=== PATIENT | male | born 1980 | race Caucasian/White ===

== ENCOUNTER 2018-02-26 06:17 | Day surgery (SDC) | payer BC ==
--- NOTE | 2018-02-19 09:16 | HP ---
DATE OF ADMISSION: 02/26/2018 DATE OF DICTATION: 12/31/2017 DATE OF SURGERY: 02/26/2018 REASON FOR ADMISSION: Scalp mass. BRIEF HISTORY: This is a 37-year-old gentleman who walks in with history of soft tissue mass on the back of his scalp. The patient states the mass has gotten larger, he wished to have this removed. PAST MEDICAL HISTORY: Denies coronary disease, hypertension, diabetes. He has a history of skin issues. PAST SURGICAL HISTORY: None. ALLERGIES: None. MEDICATION: None. SOCIAL HISTORY: Patient does not smoke and he drinks socially. PHYSICAL EXAMINATION: Physical examination of the scalp: Patient has a soft tissue mass the size of a half dollar on the back of his scalp. It is noted to be in midline, just overlying the . The mass is fairly well demarcated. The mass is soft. Patient also asked me to evaluate a soft tissue mass on his left small of his back. Examination in this area reveals a soft tissue mass approximately the size of a quarter. It is well demarcated, soft, and nontender. IMPRESSION/PLAN: Scalp mass, most likely represents a cyst. However, a lipoma cannot be entirely excluded. This is causing the patient discomfort, and he wishes to have this removed, therefore he will be scheduled for excision of this lesion. With regard to this soft tissue mass in the small of his left back, this most likely represents lipoma, and we will plan for excision in the operating room at a separate setting. The complications reviewed with this gentleman. He understands and wants to proceed. TACHO GALINDO M.D. [id number]
[2018-02-25 09:38] VITALS: BMI 33.3
[2018-02-26] MEDS ORDERED: ceFAZolin SODIUM 1 GM VIAL ONE ×2 (07:01→09:07)
[2018-02-26] MEDS ORDERED: ROCURONIUM BROMIDE 50 MG/5 ML VIAL ONE ×4 (08:36)
[2018-02-26] MEDS ORDERED: PROPOFOL 20 ML ONE (08:36)
[2018-02-26] MEDS ORDERED: MIDAZOLAM HCL 2 MG/2 ML SINGLE DOSE VIAL ONE (08:37)
[2018-02-26] MEDS ORDERED: LIDOCAINE HCL/PF 2% SDV 5ML VIAL ONE (08:40)
[2018-02-26] MEDS ORDERED: BACITRACIN 15 GM TUBE TOPICAL OINTMENT ONE (08:42)
[2018-02-26] MEDS ORDERED: LIDOCAINE HCL 1%, 10 MG/ML (20ML VIAL) ONE (08:42)
[2018-02-26] MEDS ORDERED: BUPIVACAINE HCL/PF 0.5% (5MG/ML) 10 ML VIAL ONE (08:42)
[2018-02-26] MEDS ORDERED: LIDOCAINE 1%/EPI 1:100000 (20 ML MULTI DOSE VIAL) ONE (08:42)
[2018-02-26] MEDS ORDERED: LACTATED RINGERS SOLUTION 1,000 ML IV SCH (08:45)
[2018-02-26] MEDS ORDERED: oxyCODONE HCL 5 MG TABLET PO PRN (08:45)
[2018-02-26] MEDS ORDERED: ONDANSETRON 4 MG/2 ML VIAL IVPUSH PRN (08:45)
[2018-02-26] MEDS ORDERED: PROMETHAZINE HCL 25 MG/1 ML VIAL IVPUSH PRN (08:45)
[2018-02-26] MEDS ORDERED: ceFAZolin SODIUM 1 GM VIAL IVPB ONE (09:00)
[2018-02-26] MEDS ORDERED: SODIUM CHLORIDE 0.9% P/F 10 ML VIAL IJ ONE (09:07)
[2018-02-26] MEDS ORDERED: LIDOCAINE 1%/EPI 1:100000 (50 ML MULTI DOSE VIAL) INF ONE (09:20)
[2018-02-26] MEDS ORDERED: KETOROLAC TROMETHAMINE 30 MG/1 ML VIAL ONE (09:23)
--- NOTE | 2018-02-26 09:56 | HP ---
DATE OF ADMISSION: 02/26/2018 HISTORY: This is a 37-year-old man who presents for excision of progressively enlarging soft tissue mass involving the posterior aspect of his scalp. The mass has been present for some time. No related symptoms. PAST MEDICAL HISTORY: No significant past medical history. No history of heart disease, diabetes, hypertension, respiratory or hepatic insufficiency. PAST SURGICAL HISTORY: Nil. ALLERGIES: None known. REGULAR MEDICATIONS: None. SOCIAL HISTORY: Negative for tobacco. Negative alcohol. PHYSICAL EXAMINATION: HEENT: Patient with a 4 x 5 cm soft tissue mass of the posterior scalp just off to the left of midline. It does not appear to be fixed up. There is no regional lymphadenopathy. IMPRESSION: Posterior scalp mass. PLAN: Excision posterior scalp mass. Indications, alternatives, possible complications were reviewed. Consent obtained. AUGUSTIN WATSON M.D. [id number]
[2018-02-26 10:31] VITALS: TEMP 98
--- NOTE | 2018-02-26 11:49 | OP ---
DATE OF OPERATION: 02/26/2018 PREOPERATIVE DIAGNOSIS: Posterior scalp mass. POSTOPERATIVE DIAGNOSIS: Subgaleal lipomatous neoplasia, posterior scalp. PROCEDURE: Excision subgaleal fascial lipomatous neoplasia, posterior scalp/intermediate wound closure (5 cm). OPERATING SURGEON: Abhilash Haas MD INVESTMENT ADVISOR: None. ANESTHESIA: Local/MAC, Nabeel Carnes MD HISTORY: This is a 37-year-old man who presents with a progressively enlarging soft tissue mass at the posterior scalp for formal excision. Indications, alternatives, possible complications reviewed. Consent obtained. PROCEDURE: With the patient in the right lateral decubitus position, the head turned to the right side, the posterior scalp was prepped and draped in sterile fashion using Betadine. After 1% lidocaine with epinephrine was used to place a field block at the intended level of excision, a 5-cm transverse incision was made directly over the palpable abnormality and deepened into the subcutaneous space. The subcutaneous tissues were . Deep to the [place] subcutaneous tissues, a rather well-encapsulated lipomatous neoplasia was encountered. Sharp dissection ensued, excising the lipomatous neoplasia. In the depths of the wound it had penetrated the galea and was stemming from the subgaleal region. The galea was further incised and the lesion was delivered in its entirety. After adequate hemostasis, the wound was closed in layers. The galea was approximated using interrupted 3-0 Vicryl sutures. Subcutaneous tissues were approximated using interrupted 3-0 Vicryl sutures. Skin edges were approximated using a continuous 5-0 nylon suture. [place], instrument count correct. ESTIMATED BLOOD LOSS: Minimal. SPECIMENS: Subgaleal lipomatous neoplasia, posterior scalp. DRAINS: None. The patient tolerated the procedure and the patient was transferred to recovery. ABHILASH HAAS M.D. [id number]
[2018-02-26 11:59] VITALS: BP 124/55; PULSE 63
--- NOTE | 2018-02-27 16:45 | PATH ---
Surgical Pathology Report Patient Name: NILDA RIZZO [facility]. Rec. #: [id number] /Age/Gender: 1980 (Age: 37) / M Account: [id number] Location: [facility] SURGICAL Taken: 02/26/2018 Received: 02/26/2018 Reported: 02/27/2018 Physicians: Abhilash Haas M.D. Specimen(s) Received SCALP Clinical History Scalp mass Final Diagnosis SCALP, MASS, EXCISION: BENIGN FIBROADIPOSE TISSUE CONSISTENT WITH LIPOMA. Electronically Signed Kiera Neal M.D. Gross Description Received in formalin labeled "scalp mass," is a 3.3 x 2.4 x 1.2 cm portion of yellow, lobulated adipose tissue. Sectioning reveals homogeneous yellow, smooth fat. [employer] sections are submitted in 2 cassettes. DL/02/26/2018 saudi/02/26/2018
== END 2018-02-26 11:50 | disposition home or self-care (01) ==
LOC: JASU-SURG 06:17
PROVIDERS: ATTEND Surgery
PROC: 0JB00ZZ Excision of Scalp Subcutaneous Tissue and Fascia, Open Approach (ICD-10-PCS; principal; 2018-02-26 08:00)
DX: D21.0 Benign neoplasm of connective and other soft tissue of head, face and neck (principal)
CPT/HCPCS: 88304-TC; 94760